=== PATIENT | male | born 1950 | race Two or more races ===

== ENCOUNTER 2022-06-19 10:01 | Inpatient (IN) | payer OTHER ==
[~2022-06-19] VITALS: Ht 162.6 cm; Wt 60.8 kg
--- NOTE | 2022-06-19 10:24 | NUR ---
SE RECIBE PTE ALERTA Y ORIENTADO PTE REFIERE QUE TIENE LOAN MASA DE CANCER EN EL COLON Y TIENE REFERIDO DE DR. JEWEL MCNEIL (COLORECTAL). SE TOAMN VITALES Y SE BIJU EN OBSERVACION.
--- NOTE | 2022-06-19 11:23 | NUR ---
PTE ALERTA X3 ORIENTADO, SE LE REALIZAN MUESTRAS DE LABORATORIO, SE CANALIZA EN MANO IZQUIERDA CON UN ANGIO #[id number], SE LE ORIENTA SOBRE LA MUESTRA DE ORINA A REALIZARSE. EN ESPERA DE LOS RESULTADOS DE LABORATORIO. REFERIDO POR DR. JEWEL JOAQUIN PARA CIRUJIA.
--- NOTE | 2022-06-19 15:26 | NUR ---
SE RECIBE PTE ALERTA Y ORIENTADO EN ALVARO BAJA CON BARANDAS ELEBADAS POR SEGURIDAD, SE OBSERVA CON BUEN PATRON RESPIRATORIO, RECIBIENDO IV FLUIDS PATENTES. AREA DE VENOPUNCION LEAH DE EDEMA Y ERITEMA. PEND CONS. DR JEWEL JOAQUIN. PEND CT ABD/PEL CON CONTRASTE PO.
[2022-06-23] MEDS ORDERED: MAXIMUM D3325 MCG (07:57)
[2022-06-23] MEDS ORDERED: ATORVASTATIN CA20 MG (07:57)
[2022-06-23] MEDS ORDERED: TAMSULOSIN HCL0.4 MG (07:57)
[2022-06-23] MEDS ORDERED: AMLODIPINE BESY10 MG (07:57)
[2022-06-26] MEDS ORDERED: NEURONTIN300 MG PO (17:20)
== END 2022-06-26 20:25 | disposition home or self-care (01) | DRG 329 ==
LOC: ER 10:01 → SEC-K 17:09 → SURH 17:09 → SURG 06-20 15:46
PROVIDERS: ADMIT Surgery; ATTEND Surgery
PROC: 0DTP4ZZ Resection of Rectum, Percutaneous Endoscopic Approach (ICD-10-PCS; 2022-06-20)
PROC: 07BB4ZZ Excision of Mesenteric Lymphatic, Percutaneous Endoscopic Approach (ICD-10-PCS; 2022-06-20)
PROC: 0DBN4ZZ Excision of Sigmoid Colon, Percutaneous Endoscopic Approach (ICD-10-PCS; principal; 2022-06-20 10:00)
DX: K56.699 Other intestinal obstruction unspecified as to partial versus complete obstruction (principal); J69.0 Pneumonitis due to inhalation of food and vomit; C19 Malignant neoplasm of rectosigmoid junction; J95.89 Other postprocedural complications and disorders of respiratory system, not elsewhere classified; K91.89 Other postprocedural complications and disorders of digestive system; K57.50 Diverticulosis of both small and large intestine without perforation or abscess without bleeding; I10 Essential (primary) hypertension; R09.02 Hypoxemia; Z20.822 Contact with and (suspected) exposure to COVID-19

== ENCOUNTER 2022-07-25 07:00 | Day surgery (SDC) | payer OTHER ==
[~2022-07-25 07:00] MED LIST: AMLODIPINE BESY10 MG; ATORVASTATIN CA20 MG; MAXIMUM D3325 MCG; NEURONTIN300 MG PO; TAMSULOSIN HCL0.4 MG
[2022-07-25] MEDS ORDERED: TRAM1TAB98 PO (13:43)
== END 2022-07-25 15:30 | disposition home or self-care (01) ==
LOC: CIR.AMB 07:00
PROVIDERS: ATTEND Surgery
DX: C19 Malignant neoplasm of rectosigmoid junction (principal); K62.5 Hemorrhage of anus and rectum; R59.0 Localized enlarged lymph nodes; I10 Essential (primary) hypertension

== ENCOUNTER 2022-10-30 15:12 | Inpatient (IN) | payer OTHER ==
[~2022-10-30] VITALS: Ht 162.6 cm; Wt 58.1 kg
[~2022-10-30 15:12] MED LIST changes: +TRAM1TAB98 PO
[2022-11-04] MEDS ORDERED: XARELTO15 MG PO (18:05)
[2022-11-04] MEDS ORDERED: XARELTO20 MG PO (18:06)
[2022-11-05] MEDS ORDERED: ABANEU-SL TABL1 EACH SL (06:46)
[2022-11-05] MEDS ORDERED: INTEGRA F CAPS1 EACH PO (06:46)
[2022-11-05] MEDS ORDERED: FOLIC ACID0.8 M1 PO (06:46)
== END 2022-11-04 22:44 | disposition home or self-care (01) | DRG 300 ==
LOC: ER 15:12 → SURH 19:09
PROVIDERS: ADMIT Internal Medicine; ATTEND Internal Medicine
PROC: B54NZZZ Ultrasonography of Left Upper Extremity Veins (ICD-10-PCS; principal; 2022-10-31)
DX: I82.A12 Acute embolism and thrombosis of left axillary vein (principal); C19 Malignant neoplasm of rectosigmoid junction; N39.0 Urinary tract infection, site not specified; N40.0 Benign prostatic hyperplasia without lower urinary tract symptoms; I10 Essential (primary) hypertension; Z95.9 Presence of cardiac and vascular implant and graft, unspecified

== ENCOUNTER 2023-01-23 08:10 | Day surgery (SDC) | payer OTHER ==
[~2023-01-23] VITALS: Ht 165.1 cm; Wt 59.9 kg
[~2023-01-23 08:10] MED LIST changes: +ABANEU-SL TABL1 EACH SL; +FOLIC ACID0.8 M1 PO; +INTEGRA F CAPS1 EACH PO; +XARELTO15 MG PO; +XARELTO20 MG PO
[2023-01-23] MEDS ORDERED: TRAM1TAB98 PO (12:44)
== END 2023-01-23 14:40 | disposition home or self-care (01) ==
LOC: CIR.AMB 08:10
PROVIDERS: ATTEND Surgery
DX: C19 Malignant neoplasm of rectosigmoid junction (principal); K62.5 Hemorrhage of anus and rectum; Z20.822 Contact with and (suspected) exposure to COVID-19; I10 Essential (primary) hypertension

== ENCOUNTER 2023-03-20 09:30 | Inpatient (IN) | payer OTHER ==
[~2023-03-20] VITALS: Ht 165.1 cm; Wt 62.6 kg
[2023-03-28 08:27] LABS: ALBUMIN 3.4 gm/dL (3.4-5.0); CALCIUM 8.8 mg/dL (8.5-10.1); CREATININE SERUM 1.38 mg/dL (0.70-1.30); GFR 50.65; PHOSPHOROUS 3.4 mg/dL (2.5-4.9); POTASSIUM 4.4 mEq/L (3.5-5.1)
[2023-03-28 08:28] LABS: HEMATOCRIT 40.7 % (39.0-48.0); HEMOGLOBIN 14.4 g/dL (13-16.00); MEAN CORPUSCULAR HEMOGLOBIN 31.8 pg (27.00-32.0); MEAN CORPUSCULAR HGB CONC 35.3 g/dl (32.0-36.0); PLATELET COUNT 202 K/uL (150-450); RED BLOOD COUNT 4.52 M/uL (4.00-6.00); RED CELL DISTRIBUTION WIDTH 13.8 % (11.5-14.5)
[2023-03-30 06:35] LABS: HEMATOCRIT 42.8 % (39.0-48.0); HEMOGLOBIN 14.8 g/dL (13-16.00); MEAN CELL VOLUME 90.6 fL (80.0-100.00); MEAN CORPUSCULAR HEMOGLOBIN 31.5 pg (27.00-32.0); MEAN CORPUSCULAR HGB CONC 34.7 g/dl (32.0-36.0); PLATELET COUNT 211 K/uL (150-450); RED BLOOD COUNT 4.72 M/uL (4.00-6.00); RED CELL DISTRIBUTION WIDTH 13.5 % (11.5-14.5)
[2023-03-30 07:35] LABS: ALBUMIN 3.4 gm/dL (3.4-5.0); BILIRUBIN TOTAL 0.75 mg/dL (0.3-1.2); CALCIUM 9.1 mg/dL (8.5-10.1); CREATININE SERUM 1.41 mg/dL (0.70-1.30); GFR 49.41; GLOBULINA 3.2 G/DL (2.4-3.5); POTASSIUM 3.95 mEq/L (3.5-5.1); TOTAL PROTEIN 6.6 gm/dL (6.4-8.2)
[2023-04-01 07:05] LABS: HEMATOCRIT 33.6 % (39.0-48.0); HEMOGLOBIN 11.3 g/dL (13-16.00); MEAN CELL VOLUME 91.2 fL (80.0-100.00); MEAN CORPUSCULAR HEMOGLOBIN 30.8 pg (27.00-32.0); MEAN CORPUSCULAR HGB CONC 33.8 g/dl (32.0-36.0); PLATELET COUNT 176 K/uL (150-450); RED BLOOD COUNT 3.68 M/uL (4.00-6.00); RED CELL DISTRIBUTION WIDTH 13.4 % (11.5-14.5)
[2023-04-01 07:59] LABS: ALBUMIN 2.7 gm/dL (3.4-5.0); BILIRUBIN TOTAL 0.62 mg/dL (0.3-1.2); CALCIUM 8.2 mg/dL (8.5-10.1); CREATININE SERUM 1.27 mg/dL (0.70-1.30); GFR 55.74; GLOBULINA 2.6 G/DL (2.4-3.5); MAGNESIUM 2.1 mg/dL (1.8-2.4); PHOSPHOROUS 2.8 mg/dL (2.5-4.9); POTASSIUM 3.65 mEq/L (3.5-5.1); TOTAL PROTEIN 5.3 gm/dL (6.4-8.2)
[2023-04-01] MEDS ORDERED: ACETAMINOPHEN500 M2 PO (08:05)
[2023-04-01] MEDS ORDERED: INTESTINEX680 M1 PO (08:05)
[2023-04-01] MEDS ORDERED: NEURONTIN300 MG PO (08:05)
== END 2023-04-01 10:28 | disposition home or self-care (01) | DRG 348 ==
LOC: O/R 03-27 07:16 → SURH 03-27 07:16 → SURG 03-27 09:30 → SURH 03-27 13:10 → SURG 03-27 16:45 → SURH 03-27 21:08
PROVIDERS: Internal Medicine; ADMIT Surgery; ATTEND Surgery
PROC: 0DBB4ZZ Excision of Ileum, Percutaneous Endoscopic Approach (ICD-10-PCS; principal; 2023-03-27 16:45)
DX: Z43.2 Encounter for attention to ileostomy (principal); C19 Malignant neoplasm of rectosigmoid junction; K62.5 Hemorrhage of anus and rectum; R59.0 Localized enlarged lymph nodes; K66.0 Peritoneal adhesions (postprocedural) (postinfection)

== ENCOUNTER 2024-04-29 07:05 | Day surgery (SDC) | payer OTHER ==
[~2024-04-29 07:05] MED LIST changes: +ACETAMINOPHEN500 M2 PO; +COZAAR50 MG PO; +INTESTINEX680 M1 PO; +TAMS0.4C PO
[2024-04-29] MEDS ORDERED: TRAM1TAB98 PO (13:10)
[2024-04-29] MEDS ORDERED: BUPIVACAINE HCL 30 ML VIAL IJ ONE (14:30)
[2024-04-29] MEDS ORDERED: HEPARIN SODIUM,PORCINE 500 UNITS/5 ML VIAL IV ONE (14:30)
[2024-04-29] MEDS ORDERED: CEFAZOLIN SODIUM 1,000 MG VIAL IV ONE (14:30)
== END 2024-04-29 17:35 | disposition home or self-care (01) ==
LOC: CIR.AMB 07:05
PROVIDERS: ATTEND Surgery
DX: C19 Malignant neoplasm of rectosigmoid junction (principal)
CPT/HCPCS: 36561; C1751

== ENCOUNTER 2024-09-21 13:32 | Inpatient (IN) | payer OTHER ==
[~2024-09-21] VITALS: Ht 165.1 cm; Wt 51.7 kg
[2024-09-21] MEDS ORDERED: ABATINEX680 MG PO (14:01)
[2024-09-21] MEDS ORDERED: IRON18 M1 PO (14:01)
[2024-09-21] MEDS ORDERED: HORIZANT300 MG PO (14:02)
--- NOTE | 2024-09-21 14:02 | NUR ---
SE RECIBE PACIENTE ALERTA X3. ACOMPANADO DE DELGADO HIJA. LA MISMA REFIERE QUE EL PACIENTE PRESENTA DIARREAS HACE LOAN SEMANA ATRAS Y ES OACIENTE DE CANCER, LAURA TAMBIEN; PADECE DE LOS RINONES. SE PROCEDE A MARCELINO LOS S/V AL PACIENTE Y SE UBICA EN PASILLO.
[2024-09-21] MEDS ORDERED: PANTOPRAZOLE SODIUM 40 MG in 0.9 % SODIUM CHLORIDE 8 ML IV PUSH STA (14:26)
[2024-09-21] MEDS ORDERED: ONDANSETRON HCL 2 MG/ML VIAL IV ONE (14:30)
[2024-09-21] MEDS ORDERED: 0.9 % SODIUM CHLORIDE 1,000 ML IV SCH ×4 (14:30→19:45)
[2024-09-21] MEDS ORDERED: ONDANSETRON HCL 2 MG/ML VIAL ONE (14:33)
--- NOTE | 2024-09-21 14:51 | NUR ---
RN GOFF EJECUTA ORDENES MEDICAS EN DELGADO TOTALIDAD Y BAJO MEDIDAS ASEPTICAS. PTE REFIERE ENTENDER Y ACEPTAR.
[2024-09-21 15:30] LABS: ALBUMIN 3.5 gm/dL (3.4-5.0); BILIRUBIN TOTAL 0.58 mg/dL (0.3-1.2); BILIRUBIN,CONJUGATED 0.2 mg/dL (0.0-0.2); BILIRUBIN,UNCONJUGATED 0.38 mg/dL (0.0-0.6); CALCIUM 9.4 mg/dL (8.5-10.1); GLOBULINA 3.6 G/DL (2.4-3.5); TOTAL PROTEIN 7.1 gm/dL (6.4-8.2)
[2024-09-21 15:33] LABS: GFR 6.74
[2024-09-21 15:34] LABS: CREATININE SERUM 7.9 mg/dL (0.70-1.30); POTASSIUM 6.72 mEq/L (3.5-5.1)
[2024-09-21 15:40] LABS: HEMATOCRIT 31.9 % (39.0-48.0); HEMOGLOBIN 10.7 g/dL (13-16.00); MEAN CELL VOLUME 91.6 fL (80.0-100.00); MEAN CORPUSCULAR HEMOGLOBIN 30.8 pg (27.00-32.0); MEAN CORPUSCULAR HGB CONC 33.6 g/dl (32.0-36.0); PLATELET COUNT 237 K/uL (150-450); RED BLOOD COUNT 3.48 M/uL (4.00-6.00)
[2024-09-21 15:56] LABS: RED CELL DISTRIBUTION WIDTH 16.7 % (11.5-14.5)
[2024-09-21] MEDS ORDERED: DEXTROSE 50 % IN WATER 0.5 G/ML VIAL IV ONE ×2 (17:15→18:05)
[2024-09-21] MEDS ORDERED: SODIUM BICARBONATE 150 MEQ in DEXTROSE 5 % IN WATER 1,000 ML IV SCH (17:15)
[2024-09-21] MEDS ORDERED: INSULIN REGULAR, HUMAN 1,000 UNIT/10 ML UNITS IV ONE (17:15)
[2024-09-21] MEDS ORDERED: CITRIC ACID/SODIUM CITRATE 30 ML BLIST.PACK PO ONE ×2 (17:15→18:06)
[2024-09-21] MEDS ORDERED: SODIUM POLYSTYRENE SULFONATE 15 G/4 TSP TSP PO ONE (17:15)
[2024-09-21 17:44] LABS: PH,URINE 5.5 (5.0-8.0); URINE APPEARANCE Clear; URINE BILIRRUBIN Negative (NEGATIVE); URINE BLOOD Large; URINE COLOR Yellow; URINE GLUCOSE Negative (NEGATIVE); URINE KETONE Negative (NEGATIVE); URINE LEUKOCYTE Moderate; URINE NITRATE Negative; URINE UROBILINOGEN 0.2 E.U./dl
[2024-09-21 17:48] LABS: URINE CAST 2.06 uL (0.0-1.40); URINE EPITHELIAL CELLS 7.9 uL (0.0-38.8); URINE RBC 65.5 uL (0.0-20.8); URINE WBC 21.5 uL (0.0-23.2)
[2024-09-21 18:01] LABS: URINE PROTEIN 100 (NEGATIVE)
[2024-09-21 18:02] LABS: URINE CRYSTALS MODERATE /HPF
[2024-09-21 18:49] LABS: ABG PH 7.281 (7.35-7.45)
[2024-09-21 18:50] LABS: ABG PO2 135.3 mmHg (80-100); BASE EXCESS -16.2 mmol/l; BICARBONATE 7.8 mmol/l (23-25); SaO2 98.4 %; Tco2 8.4 mmol/l; allen test SATISFACTORY; mode ROOM AIR; o2 21 %; puncture site RADIAL LEFT
[2024-09-21 19:07] LABS: COVID-19 AG NEGATIVE (NEGATIVE)
[2024-09-21 19:13] LABS: INR 1.2; PARTIAL THROMBOPLASTIN TIME 23.7 SECONDS (22.0-34.0); PROTHROMBIN TIME 12.9 SECONDS (9.0-11.5)
[2024-09-21 19:20] LABS: MAGNESIUM 1.8 mg/dL (1.8-2.4); PHOSPHOROUS 5.6 mg/dL (2.5-4.9); URIC ACID 7.1 mg/dL (3.5-8.5)
[2024-09-21] MEDS ORDERED: SODIUM BICARBONATE 50MEQ/50ML VIAL IV ONE (19:31)
[2024-09-21] MEDS ORDERED: CEFTRIAXONE SODIUM 2,000 MG in 0.9 % SODIUM CHLORIDE 100 ML IV SCH (19:37)
[2024-09-21] MEDS ORDERED: SODIUM POLYSTYRENE SULFONATE 15 G/4 TSP TSP PO SCH (19:39)
[2024-09-21] MEDS ORDERED: SODIUM BICARBONATE 1 MEQ/ML DISP.SYRIN 50ML IV ONE (19:45)
[2024-09-21] MEDS ORDERED: ACETAMINOPHEN 500 MG GEL..CAP PO PRN (19:45)
[2024-09-21] MEDS ORDERED: ONDANSETRON HCL 4 MG in 0.9 % SODIUM CHLORIDE 50 ML IV PRN (19:45)
[2024-09-21 23:30] VITALS: BP 131/95; O2SAT 98
[2024-09-22 05:26] LABS: ALBUMIN 2.6 gm/dL (3.4-5.0); BILIRUBIN TOTAL 0.47 mg/dL (0.3-1.2); CALCIUM 7.7 mg/dL (8.5-10.1); GFR 7.69; GLOBULINA 2.5 G/DL (2.4-3.5); POTASSIUM 4.7 mEq/L (3.5-5.1); TOTAL PROTEIN 5.1 gm/dL (6.4-8.2)
[2024-09-22 05:39] LABS: CREATININE SERUM 7.05 mg/dL (0.70-1.30)
[2024-09-22 07:04] VITALS: BP 194/77; O2SAT 100
[2024-09-22] MEDS ORDERED: SODIUM BICARBONATE 150 MEQ in DEXTROSE 5 % IN WATER 1,000 ML IV SCH (08:30)
[2024-09-22] MEDS ORDERED: AMLODIPINE BESYLATE 2.5 MG TABLET PO SCH (09:00)
[2024-09-22] MEDS ORDERED: PANTOPRAZOLE SODIUM 40 MG/VIAL VIAL IV SCH (09:00)
[2024-09-22] MEDS ORDERED: IRON FUM,PS/FOLIC/BCOMP,C NO.9 1 CAP CAPSULE PO SCH (09:00)
[2024-09-22 10:45] LABS: ABG PH 7.548 (7.35-7.45); ABG PO2 166.4 mmHg (80-100); ABG pCO2 24.5 mmHg (35-45); BASE EXCESS 0.3 mmol/l; BICARBONATE 20.9 mmol/l (23-25); SaO2 99.7 %; Tco2 21.6 mmol/l
[2024-09-22] MEDS ORDERED: hydrALAZINE HCL 20 MG VIAL IV PRN (10:45)
[2024-09-22 11:50] LABS: allen test SATISFACTORY; mode NASAL CANNULA; o2 32 %; puncture site RADIAL LEFT
[2024-09-22 13:22] VITALS: BP 186/80; O2SAT 100
[2024-09-22] MEDS ORDERED: SODIUM CHLORIDE 0.45 % 1,000 ML IV SCH (13:45)
[2024-09-22 13:52] VITALS: BP 109/69; O2SAT 100
[2024-09-22 14:55] LABS: HEMATOCRIT 28.6 % (39.0-48.0); HEMOGLOBIN 9.9 g/dL (13-16.00); MEAN CELL VOLUME 89.2 fL (80.0-100.00); MEAN CORPUSCULAR HEMOGLOBIN 30.9 pg (27.00-32.0); MEAN CORPUSCULAR HGB CONC 34.7 g/dl (32.0-36.0); PLATELET COUNT 183 K/uL (150-450); RED BLOOD COUNT 3.21 M/uL (4.00-6.00)
[2024-09-22 15:59] VITALS: BP 132/77; O2SAT 100
[2024-09-22] MEDS ORDERED: hydrALAZINE HCL 25 MG TABLET PO SCH (17:00)
[2024-09-22] MEDS ORDERED: MEROPENEM 500 MG/VIAL VIAL IV SCH (18:16)
[2024-09-22 20:00] VITALS: BP 131/68; O2SAT 100
[2024-09-22] MEDS ORDERED: LINEZOLID IN DEXTROSE 5% 300 ML IV SCH (21:00)
[2024-09-22 23:39] VITALS: BP 131/70; O2SAT 100
[2024-09-23 04:00] VITALS: BP 121/70; O2SAT 100
[2024-09-23 07:17] LABS: MEAN CELL VOLUME 88.1 fL (80.0-100.00); MEAN CORPUSCULAR HGB CONC 34.8 g/dl (32.0-36.0); RED BLOOD COUNT 2.31 M/uL (4.00-6.00); RED CELL DISTRIBUTION WIDTH 16.3 % (11.5-14.5)
[2024-09-23 07:22] LABS: MEAN CORPUSCULAR HEMOGLOBIN 30.7 pg (27.00-32.0)
[2024-09-23 07:29] LABS: HEMOGLOBIN 7.1 g/dL (13-16.00)
[2024-09-23 07:30] LABS: HEMATOCRIT 20.4 % (39.0-48.0); PLATELET COUNT 118 K/uL (150-450)
[2024-09-23 07:37] VITALS: BP 153/76; O2SAT 100
[2024-09-23 07:59] LABS: ALBUMIN 2.2 gm/dL (3.4-5.0); BILIRUBIN TOTAL 0.43 mg/dL (0.3-1.2); CALCIUM 7.1 mg/dL (8.5-10.1); GFR 7.65; POTASSIUM 4.42 mEq/L (3.5-5.1); TOTAL PROTEIN 4.2 gm/dL (6.4-8.2)
[2024-09-23 08:19] LABS: CREATININE SERUM 7.08 mg/dL (0.70-1.30)
[2024-09-23 08:54] LABS: MEAN CELL VOLUME 89.2 fL (80.0-100.00); MEAN CORPUSCULAR HGB CONC 34.6 g/dl (32.0-36.0); RED BLOOD COUNT 2.39 M/uL (4.00-6.00); RED CELL DISTRIBUTION WIDTH 16.2 % (11.5-14.5)
[2024-09-23 08:55] LABS: MEAN CORPUSCULAR HEMOGLOBIN 30.9 pg (27.00-32.0)
[2024-09-23 08:58] LABS: HEMATOCRIT 21.3 % (39.0-48.0); HEMOGLOBIN 7.4 g/dL (13-16.00); PLATELET COUNT 117 K/uL (150-450)
[2024-09-23] MEDS ORDERED: AMLODIPINE BESYLATE 5 MG TABLET PO SCH (09:00)
[2024-09-23] MEDS ORDERED: AMLODIPINE BESYLATE 2.5 MG TABLET PO SCH (09:00)
[2024-09-23 09:59] LABS: ob POSITIVE (NEGATIVE)
[2024-09-23] MEDS ORDERED: CHLORHEXIDINE GLUCONATE 120 ML BOTTLE TOP ONE (10:05)
[2024-09-23 12:08] VITALS: BP 116/71; O2SAT 100
[2024-09-23 15:10] VITALS: BP 149/82; O2SAT 100
[2024-09-23 20:00] VITALS: BP 128/78; O2SAT 100
[2024-09-23] MEDS ORDERED: METRONIDAZOLE/SODIUM CHLORIDE 100 ML IV SCH (21:00)
[2024-09-23] MEDS ORDERED: PANTOPRAZOLE SODIUM 40 MG/VIAL VIAL IV SCH (21:00)
[2024-09-23 23:13] VITALS: BP 147/87; O2SAT 100
[2024-09-24 01:27] LABS: MEAN CELL VOLUME 88.8 fL (80.0-100.00); MEAN CORPUSCULAR HGB CONC 34.6 g/dl (32.0-36.0); RED BLOOD COUNT 3.15 M/uL (4.00-6.00)
[2024-09-24 01:29] LABS: HEMOGLOBIN 9.7 g/dL (13-16.00); MEAN CORPUSCULAR HEMOGLOBIN 30.7 pg (27.00-32.0); PLATELET COUNT 111 K/uL (150-450)
[2024-09-24 04:00] VITALS: BP 165/83; O2SAT 100
[2024-09-24 07:28] VITALS: BP 169/86; O2SAT 100
[2024-09-24 07:55] LABS: ALBUMIN 2.1 gm/dL (3.4-5.0); BILIRUBIN TOTAL 0.88 mg/dL (0.3-1.2); GLOBULINA 2.1 G/DL (2.4-3.5); PHOSPHOROUS 5.6 mg/dL (2.5-4.9); POTASSIUM 4.24 mEq/L (3.5-5.1); TOTAL PROTEIN 4.2 gm/dL (6.4-8.2)
[2024-09-24 08:13] LABS: HEMATOCRIT 25.9 % (39.0-48.0); MEAN CELL VOLUME 89.1 fL (80.0-100.00); MEAN CORPUSCULAR HGB CONC 34.4 g/dl (32.0-36.0); RED BLOOD COUNT 2.91 M/uL (4.00-6.00); RED CELL DISTRIBUTION WIDTH 15.5 % (11.5-14.5)
[2024-09-24 08:33] LABS: C-REACTIVE PROTEIN 8.36 MG/DL (0.00-0.29); GFR 8.39
[2024-09-24 08:34] LABS: CALCIUM 7.1 mg/dL (8.5-10.1)
[2024-09-24 08:38] LABS: CREATININE SERUM 6.54 mg/dL (0.70-1.30)
[2024-09-24 08:39] LABS: MAGNESIUM 1.4 mg/dL (1.8-2.4)
[2024-09-24 08:51] LABS: HEMOGLOBIN 8.9 g/dL (13-16.00); MEAN CORPUSCULAR HEMOGLOBIN 30.5 pg (27.00-32.0); PLATELET COUNT 103 K/uL (150-450)
[2024-09-24] MEDS ORDERED: MAGNESIUM SULFATE IN WATER 2 GM/50 ML PIGGYBAG IV NR (09:00)
[2024-09-24] MEDS ORDERED: FILGRASTIM-AAFI 480 MCG/0.8 ML SYRINGE SUBCUTANEO SCH (09:55)
[2024-09-24] MEDS ORDERED: RINGERS SOLUTION,LACTATED 1,000 ML IV SCH (10:00)
[2024-09-24] MEDS ORDERED: Calcium Acetate 667 MG CAP PO SCH (11:00)
[2024-09-24 12:00] VITALS: BP 153/74; O2SAT 100
[2024-09-24 15:24] VITALS: BP 153/74; BP 163/81; O2SAT 100
[2024-09-24] MEDS ORDERED: Calcium Carbonate 1250 MG/5 ML PO SCH (16:00)
[2024-09-24] MEDS ORDERED: AMLODIPINE BESYLATE 2.5 MG TABLET PO SCH (17:00)
[2024-09-24] MEDS ORDERED: CLOTRIMAZOLE 10 MG TROCHE MM SCH (17:46)
[2024-09-24 20:00] VITALS: BP 149/83; O2SAT 100
[2024-09-24 23:19] VITALS: BP 155/82; O2SAT 100
[2024-09-25] VITALS (7 sets, daily range): BP systolic 126–164; BP diastolic 81–89; O2SAT 98–100
[2024-09-25 06:12] LABS: CALCIUM 8.2 mg/dL (8.5-10.1); POTASSIUM 4.59 mEq/L (3.5-5.1)
[2024-09-25 06:23] LABS: CREATININE SERUM 6.4 mg/dL (0.70-1.30); GFR 8.6
[2024-09-25] MEDS ORDERED: DEXTROSE 5 % AND 0.9 % NACL 1,000 ML IV SCH (10:00)
[2024-09-25] MEDS ORDERED: SODIUM BICARBONATE IV SCH ×2 (10:30→17:45)
[2024-09-25] MEDS ORDERED: SODIUM CHLORIDE 0.9% IV SCH (10:30)
[2024-09-25] MEDS ORDERED: SODIUM BICARBONATE 50MEQ/50ML VIAL IV ONE ×2 (11:11→17:24)
[2024-09-25] MEDS ORDERED: FOLIC ACID 1 MG TABLET PO SCH (12:00)
[2024-09-25] MEDS ORDERED: CYANOCOBALAMIN (VITAMIN B-12) 1,000 MCG/ML VIAL SUBCUTANEO SCH (12:00)
[2024-09-25] MEDS ORDERED: SOD FERRIC GLUC COMPLX/SUCROSE 62.5 MG in 0.9 % SODIUM CHLORIDE 50 ML IV SCH (12:00)
[2024-09-25] MEDS ORDERED: SODIUM BICARBONATE 100 MEQ in DEXTROSE 5 % IN WATER 1,000 ML IV SCH (17:45)
[2024-09-26 04:00] VITALS: BP 159/90; O2SAT 100
[2024-09-26 07:36] VITALS: BP 159/94; O2SAT 100
[2024-09-26] MEDS ORDERED: EPOETIN ALFA-EPBX 10,000 UNIT/ML VIAL (Retacrit) SUBCUTANEO SCH (09:00)
[2024-09-26] MEDS ORDERED: METOPROLOL SUCCINATE 25 MG TAB.SR.24H PO NR (11:30)
[2024-09-26 12:00] VITALS: BP 143/96; O2SAT 100
[2024-09-26] MEDS ORDERED: hydrALAZINE HCL 50 MG TABLET PO SCH (13:00)
[2024-09-26 15:07] VITALS: BP 156/87; O2SAT 98
[2024-09-26 18:55] LABS: HEMATOCRIT 39.1 % (39.0-48.0); HEMOGLOBIN 13.4 g/dL (13-16.00); MEAN CELL VOLUME 86.8 fL (80.0-100.00); MEAN CORPUSCULAR HEMOGLOBIN 29.8 pg (27.00-32.0); MEAN CORPUSCULAR HGB CONC 34.4 g/dl (32.0-36.0); RED CELL DISTRIBUTION WIDTH 15.3 % (11.5-14.5)
[2024-09-26 18:57] LABS: PLATELET COUNT 109 K/uL (150-450)
[2024-09-26 19:08] LABS: INR 1.45; PARTIAL THROMBOPLASTIN TIME 36.7 SECONDS (22.0-34.0)
[2024-09-26 19:14] LABS: PROTHROMBIN TIME 15.4 SECONDS (9.0-11.5)
[2024-09-26 19:15] LABS: ALBUMIN 2.2 gm/dL (3.4-5.0); BILIRUBIN TOTAL 0.92 mg/dL (0.3-1.2); GLOBULINA 2.3 G/DL (2.4-3.5); POTASSIUM 3.55 mEq/L (3.5-5.1); TOTAL PROTEIN 4.5 gm/dL (6.4-8.2)
[2024-09-26 19:47] LABS: GFR 9.32
[2024-09-26 19:48] LABS: CREATININE SERUM 5.97 mg/dL (0.70-1.30)
[2024-09-26 20:00] VITALS: BP 140/86; O2SAT 100
[2024-09-26] MEDS ORDERED: SODIUM CHLORIDE 0.45 % 1,000 ML IV SCH (20:15)
[2024-09-26] MEDS ORDERED: SODIUM BICARBONATE 1 MEQ/ML DISP.SYRIN 50ML IV SCH (21:00)
[2024-09-26] MEDS ORDERED: SODIUM BICARBONATE 50MEQ/50ML VIAL IV ONE (21:08)
[2024-09-26 22:57] VITALS: BP 120/73; O2SAT 100
[2024-09-27] MEDS ORDERED: METOPROLOL SUCCINATE 25 MG TAB.SR.24H PO SCH (09:00)
[2024-09-27 23:58] VITALS: BP 136/87; O2SAT 100
[2024-09-28 04:03] VITALS: BP 146/78; O2SAT 100
[2024-09-28 07:03] VITALS: BP 134/75; O2SAT 100
[2024-09-28 07:09] LABS: HEMATOCRIT 37.5 % (39.0-48.0); HEMOGLOBIN 12.8 g/dL (13-16.00); MEAN CELL VOLUME 87.6 fL (80.0-100.00); MEAN CORPUSCULAR HEMOGLOBIN 29.9 pg (27.00-32.0); MEAN CORPUSCULAR HGB CONC 34.2 g/dl (32.0-36.0); RED BLOOD COUNT 4.29 M/uL (4.00-6.00); RED CELL DISTRIBUTION WIDTH 15.5 % (11.5-14.5)
[2024-09-28 07:26] LABS: PLATELET COUNT 118 K/uL (150-450)
[2024-09-28 07:54] LABS: ALBUMIN 1.8 gm/dL (3.4-5.0); BILIRUBIN TOTAL 0.63 mg/dL (0.3-1.2); CALCIUM 7.4 mg/dL (8.5-10.1); GLOBULINA 1.9 G/DL (2.4-3.5); PHOSPHOROUS 4.8 mg/dL (2.5-4.9); POTASSIUM 3.05 mEq/L (3.5-5.1); TOTAL PROTEIN 3.7 gm/dL (6.4-8.2)
[2024-09-28 08:12] LABS: GFR 10.31
[2024-09-28 08:13] LABS: CREATININE SERUM 5.47 mg/dL (0.70-1.30)
[2024-09-28 08:50] LABS: PLATELET ESTIMATE DECREASED (NORMAL)
[2024-09-28] MEDS ORDERED: SUCRALFATE 1 G TABLET PO SCH (09:00)
[2024-09-28] MEDS ORDERED: SODIUM BICARBONATE 50MEQ/50ML VIAL IV SCH (09:00)
[2024-09-28] MEDS ORDERED: DEXTROSE 5 %-0.45 % SOD CHLORD 1,000 ML IV SCH (09:15)
[2024-09-28 10:28] LABS: URINE APPEARANCE Clear; URINE BILIRRUBIN Negative (NEGATIVE); URINE BLOOD Large; URINE COLOR Yellow; URINE GLUCOSE Negative (NEGATIVE); URINE KETONE Trace (NEGATIVE); URINE LEUKOCYTE Trace; URINE NITRATE Negative; URINE PROTEIN 30 (NEGATIVE); URINE UROBILINOGEN 0.2 E.U./dl
[2024-09-28 10:32] LABS: URINE BACTERIA 45.2 uL (0.0-1933); URINE EPITHELIAL CELLS 3.1 uL (0.0-38.8); URINE RBC 50.8 uL (0.0-20.8); URINE WBC 4.1 uL (0.0-23.2)
[2024-09-28 12:00] VITALS: BP 130/74; O2SAT 100
[2024-09-28] MEDS ORDERED: AMINO ACIDS/PROTEIN HYDROLYS 30 ML BLIST.PACK PO SCH (13:00)
[2024-09-28] MEDS ORDERED: POTASSIUM CHLORIDE IN WATER 100 ML IV SCH (13:00)
[2024-09-28 15:52] VITALS: BP 136/76; O2SAT 100
[2024-09-28] MEDS ORDERED: MEGESTROL ACETATE 400 MG/10 ML BLIST PACK PO SCH (17:00)
[2024-09-28 20:07] VITALS: BP 129/82; O2SAT 100
[2024-09-28 23:39] VITALS: BP 144/80; O2SAT 100
[2024-09-29 04:36] VITALS: BP 135/83; O2SAT 100
[2024-09-29 07:17] VITALS: BP 144/79; O2SAT 100
[2024-09-29 07:49] LABS: ALBUMIN 1.9 gm/dL (3.4-5.0); CALCIUM 7.6 mg/dL (8.5-10.1); MAGNESIUM 2.3 mg/dL (1.8-2.4); PHOSPHOROUS 3.6 mg/dL (2.5-4.9); POTASSIUM 3.14 mEq/L (3.5-5.1)
[2024-09-29 08:04] LABS: GFR 10.22
[2024-09-29 08:06] LABS: CREATININE SERUM 5.51 mg/dL (0.70-1.30)
[2024-09-29 12:00] VITALS: BP 134/74; O2SAT 100
[2024-09-29] MEDS ORDERED: POTASSIUM CHLORIDE/D5-0.45NACL 20 MEQ/1,000 ML PIGGYBAG IV SCH (14:30)
[2024-09-29 15:26] VITALS: BP 135/80; O2SAT 100
[2024-09-29 20:00] VITALS: BP 138/81; O2SAT 100
[2024-09-29 22:31] VITALS: BP 134/77
[2024-09-30 00:37] VITALS: BP 123/77; O2SAT 97
[2024-09-30 06:50] LABS: CALCIUM 7.6 mg/dL (8.5-10.1); PHOSPHOROUS 3.6 mg/dL (2.5-4.9); POTASSIUM 3.5 mEq/L (3.5-5.1)
[2024-09-30 07:01] LABS: CREATININE SERUM 5.37 mg/dL (0.70-1.30); GFR 10.53
[2024-09-30 10:03] VITALS: BP 151/90; O2SAT 97
[2024-09-30 15:10] LABS: campy Final report (.)
[2024-09-30 18:35] VITALS: BP 130/84
[2024-10-01 01:06] VITALS: BP 121/78
[2024-10-01] MEDS ORDERED: LACTOBACILLUS ACIDOPHILUS 1 CAP CAP PO SCH (09:00)
[2024-10-01 09:52] VITALS: BP 134/81; O2SAT 98
[2024-10-01 17:58] VITALS: BP 130/80; O2SAT 98
[2024-10-02 01:34] VITALS: BP 122/70
[2024-10-02 09:24] VITALS: BP 142/90; O2SAT 98
[2024-10-02 17:09] VITALS: BP 155/82; O2SAT 97
[2024-10-03 01:39] VITALS: BP 128/77
[2024-10-03 07:16] LABS: BILIRUBIN TOTAL 0.48 mg/dL (0.3-1.2); CALCIUM 8.2 mg/dL (8.5-10.1); GLOBULINA 2.1 G/DL (2.4-3.5); PHOSPHOROUS 4.2 mg/dL (2.5-4.9); POTASSIUM 3.92 mEq/L (3.5-5.1); TOTAL PROTEIN 4.1 gm/dL (6.4-8.2)
[2024-10-03 07:30] LABS: GFR 10.14
[2024-10-03 07:31] LABS: CREATININE SERUM 5.55 mg/dL (0.70-1.30)
[2024-10-03] MEDS ORDERED: DEXTROSE 5 %-0.45 % SOD CHLORD 1,000 ML IV SCH (08:15)
[2024-10-03 08:30] VITALS: BP 148/82
[2024-10-03 13:07] LABS: HEMATOCRIT 34.9 % (39.0-48.0); HEMOGLOBIN 11.9 g/dL (13-16.00); MEAN CELL VOLUME 87.6 fL (80.0-100.00); MEAN CORPUSCULAR HEMOGLOBIN 29.8 pg (27.00-32.0); MEAN CORPUSCULAR HGB CONC 34.1 g/dl (32.0-36.0); PLATELET COUNT 211 K/uL (150-450); RED BLOOD COUNT 3.98 M/uL (4.00-6.00)
[2024-10-03] MEDS ORDERED: MEROPENEM 500 MG/VIAL VIAL IV SCH (17:00)
[2024-10-03 18:40] VITALS: BP 151/84
[2024-10-03 20:33] LABS: URINE APPEARANCE Clear; URINE BILIRRUBIN Negative (NEGATIVE); URINE BLOOD Moderate; URINE COLOR Yellow; URINE KETONE Negative (NEGATIVE); URINE LEUKOCYTE Small; URINE NITRATE Negative; URINE PROTEIN 30 (NEGATIVE); URINE UROBILINOGEN 0.2 E.U./dl
[2024-10-03 20:36] LABS: URINE BACTERIA 103.9 uL (0.0-1933); URINE EPITHELIAL CELLS 11.3 uL (0.0-38.8); URINE RBC 29.6 uL (0.0-20.8); URINE WBC 62.9 uL (0.0-23.2)
[2024-10-03 21:11] LABS: URINE CAST 0.29 uL (0.0-1.40); URINE GLUCOSE 100 MG/DL (NEGATIVE)
[2024-10-04 02:03] VITALS: BP 134/80; O2SAT 97
[2024-10-04 06:29] LABS: HEMATOCRIT 32.5 % (39.0-48.0); HEMOGLOBIN 11.4 g/dL (13-16.00); MEAN CELL VOLUME 87.2 fL (80.0-100.00); MEAN CORPUSCULAR HEMOGLOBIN 30.6 pg (27.00-32.0); PLATELET COUNT 230 K/uL (150-450); RED BLOOD COUNT 3.73 M/uL (4.00-6.00); RED CELL DISTRIBUTION WIDTH 16.2 % (11.5-14.5)
[2024-10-04 07:01] LABS: ALBUMIN 1.8 gm/dL (3.4-5.0); BILIRUBIN TOTAL 0.37 mg/dL (0.3-1.2); CALCIUM 7.6 mg/dL (8.5-10.1); GLOBULINA 2.1 G/DL (2.4-3.5); MAGNESIUM 1.9 mg/dL (1.8-2.4); PHOSPHOROUS 3.9 mg/dL (2.5-4.9); POTASSIUM 3.65 mEq/L (3.5-5.1); TOTAL PROTEIN 3.9 gm/dL (6.4-8.2)
[2024-10-04 07:38] LABS: CREATININE SERUM 5.21 mg/dL (0.70-1.30); GFR 10.9
[2024-10-04 08:58] VITALS: BP 135/81
[2024-10-04] MEDS ORDERED: CITRIC ACID/SODIUM CITRATE 30 ML BLIST.PACK PO SCH (09:00)
[2024-10-04 11:10] LABS: ABG PH 7.346 (7.35-7.45); ABG PO2 117.1 mmHg (80-100); BICARBONATE 11.2 mmol/l (23-25); SaO2 98.1 %; Tco2 11.8 mmol/l
[2024-10-04 11:15] LABS: allen test SATISFACTORY; mode ROOM AIR; o2 21 %; puncture site RADIAL RIGHT
[2024-10-04 16:35] VITALS: BP 151/78; O2SAT 98
[2024-10-04] MEDS ORDERED: VANCOMYCIN HCL 1,000 MG VIAL IV NR (17:00)
[2024-10-04] MEDS ORDERED: SODIUM BICARBONATE 50MEQ/50ML VIAL IV SCH (18:00)
[2024-10-04] MEDS ORDERED: MIDAZOLAM HCL 2 MG/2 ML VIAL IV PUSH ONE (19:00)
[2024-10-04] MEDS ORDERED: fentaNYL CITRATE 50 MCG/ML AMPUL IV PUSH ONE (19:00)
[2024-10-05 03:02] VITALS: BP 147/87; O2SAT 95
[2024-10-05 09:14] VITALS: BP 145/86; O2SAT 99
[2024-10-05 09:41] LABS: INR 1.4; PARTIAL THROMBOPLASTIN TIME 30.1 SECONDS (22.0-34.0); PROTHROMBIN TIME 14.9 SECONDS (9.0-11.5)
[2024-10-05] MEDS ORDERED: SODIUM CHLORIDE 0.45 % 1,000 ML IV SCH (17:00)
[2024-10-05 19:11] VITALS: BP 123/78
[2024-10-06 02:42] VITALS: BP 147/84; O2SAT 95
[2024-10-06 06:47] LABS: HEMATOCRIT 30.9 % (39.0-48.0); HEMOGLOBIN 10.6 g/dL (13-16.00); MEAN CELL VOLUME 88.5 fL (80.0-100.00); MEAN CORPUSCULAR HEMOGLOBIN 30.5 pg (27.00-32.0); MEAN CORPUSCULAR HGB CONC 34.4 g/dl (32.0-36.0); PLATELET COUNT 264 K/uL (150-450); RED BLOOD COUNT 3.49 M/uL (4.00-6.00); RED CELL DISTRIBUTION WIDTH 15.8 % (11.5-14.5)
[2024-10-06 07:31] LABS: ALBUMIN 1.8 gm/dL (3.4-5.0); BILIRUBIN TOTAL 0.41 mg/dL (0.3-1.2); CALCIUM 7.2 mg/dL (8.5-10.1); GLOBULINA 2.2 G/DL (2.4-3.5); MAGNESIUM 1.5 mg/dL (1.8-2.4); PHOSPHOROUS 3.9 mg/dL (2.5-4.9)
[2024-10-06 07:44] VITALS: BP 130/74; O2SAT 96
[2024-10-06 08:01] LABS: C-REACTIVE PROTEIN 2.05 MG/DL (0.00-0.29); GFR 15.01
[2024-10-06 08:02] LABS: CREATININE SERUM 3.94 mg/dL (0.70-1.30); POTASSIUM 2.89 mEq/L (3.5-5.1)
[2024-10-06] MEDS ORDERED: POTASSIUM BICARBONATE/CIT AC 25 MEQ TABLET.EFF PO SCH (08:07)
[2024-10-06] MEDS ORDERED: MAGNESIUM SULFATE IN WATER 4 GM/100 ML PIGGYBACK IV NR (08:40)
[2024-10-06 16:57] VITALS: BP 120/71; O2SAT 96
[2024-10-06] MEDS ORDERED: POTASSIUM BICARBONATE/CIT AC 25 MEQ TABLET.EFF PO ONE (20:24)
[2024-10-07 02:12] VITALS: BP 135/76; O2SAT 97
[2024-10-07 08:15] VITALS: BP 121/71; O2SAT 96
[2024-10-07 17:50] LABS: HEMATOCRIT 34.2 % (39.0-48.0); HEMOGLOBIN 11.5 g/dL (13-16.00); MEAN CELL VOLUME 88.2 fL (80.0-100.00); MEAN CORPUSCULAR HEMOGLOBIN 29.8 pg (27.00-32.0); MEAN CORPUSCULAR HGB CONC 33.8 g/dl (32.0-36.0); PLATELET COUNT 372 K/uL (150-450); RED BLOOD COUNT 3.87 M/uL (4.00-6.00)
[2024-10-07 18:15] LABS: CALCIUM 7.4 mg/dL (8.5-10.1); CREATININE SERUM 2.84 mg/dL (0.70-1.30); GFR 21.9; PHOSPHOROUS 2.7 mg/dL (2.5-4.9)
[2024-10-07 18:30] LABS: POTASSIUM 2.98 mEq/L (3.5-5.1)
[2024-10-07 18:36] VITALS: BP 129/81
[2024-10-07] MEDS ORDERED: POTASSIUM CHLORIDE IN WATER 40 MEQ/100 ML PIGGYBAG IV SCH (21:00)
[2024-10-08 03:08] VITALS: BP 110/72; O2SAT 97
[2024-10-08 09:34] LABS: HEMATOCRIT 31.1 % (39.0-48.0); HEMOGLOBIN 10.7 g/dL (13-16.00); MEAN CELL VOLUME 88.4 fL (80.0-100.00); MEAN CORPUSCULAR HEMOGLOBIN 30.3 pg (27.00-32.0); MEAN CORPUSCULAR HGB CONC 34.3 g/dl (32.0-36.0); PLATELET COUNT 348 K/uL (150-450); RED BLOOD COUNT 3.52 M/uL (4.00-6.00); RED CELL DISTRIBUTION WIDTH 16.5 % (11.5-14.5)
[2024-10-08 10:29] LABS: ALBUMIN 1.9 gm/dL (3.4-5.0); CALCIUM 7.7 mg/dL (8.5-10.1); CREATININE SERUM 2.71 mg/dL (0.70-1.30); GFR 23.12; MAGNESIUM 2.1 mg/dL (1.8-2.4); PHOSPHOROUS 2.7 mg/dL (2.5-4.9); POTASSIUM 4.6 mEq/L (3.5-5.1)
[2024-10-08 19:01] VITALS: BP 116/74
[2024-10-09 02:07] VITALS: BP 106/65; O2SAT 97
[2024-10-09 09:12] VITALS: BP 130/78
[2024-10-09 17:20] VITALS: BP 125/80
[2024-10-10 00:58] VITALS: BP 118/70; O2SAT 97
[2024-10-10 07:26] LABS: ALBUMIN 1.9 gm/dL (3.4-5.0); CALCIUM 7.6 mg/dL (8.5-10.1); CREATININE SERUM 1.94 mg/dL (0.70-1.30); PHOSPHOROUS 2.6 mg/dL (2.5-4.9); POTASSIUM 3.74 mEq/L (3.5-5.1)
[2024-10-10 07:28] LABS: MAGNESIUM 1.4 mg/dL (1.8-2.4)
[2024-10-10 09:15] VITALS: BP 123/77; O2SAT 98
[2024-10-10] MEDS ORDERED: MAGNESIUM SULFATE/D5W 100 ML IV SCH (14:05)
[2024-10-10 18:12] VITALS: BP 128/76
[2024-10-10 23:30] LABS: HEMATOCRIT 30.3 % (39.0-48.0); MEAN CORPUSCULAR HGB CONC 33.7 g/dl (32.0-36.0); PLATELET COUNT 421 K/uL (150-450); RED CELL DISTRIBUTION WIDTH 15.8 % (11.5-14.5)
[2024-10-10 23:41] LABS: HEMOGLOBIN 10.2 g/dL (13-16.00)
[2024-10-11 01:40] VITALS: BP 110/69
[2024-10-11 10:09] VITALS: BP 141/75; O2SAT 100
[2024-10-11 11:24] LABS: ALBUMIN 1.9 gm/dL (3.4-5.0); BILIRUBIN TOTAL 0.5 mg/dL (0.3-1.2); CALCIUM 7.8 mg/dL (8.5-10.1); CREATININE SERUM 1.76 mg/dL (0.70-1.30); GFR 38.04; GLOBULINA 3.1 G/DL (2.4-3.5); MAGNESIUM 1.5 mg/dL (1.8-2.4); POTASSIUM 3.79 mEq/L (3.5-5.1)
[2024-10-11] MEDS ORDERED: MAGNESIUM CHLORIDE 70 MG TABLET.DR PO STA (15:03)
[2024-10-11 16:51] VITALS: BP 124/73; O2SAT 99
[2024-10-11] MEDS ORDERED: NORVASC2.5 M1 PO (16:51)
[2024-10-11] MEDS ORDERED: HYDRALAZINE HCL50 MG PO (16:52)
[2024-10-11] MEDS ORDERED: TOPROL XL25 M1 PO (16:52)
[2024-10-11] MEDS ORDERED: CALCIUM CA500 MG/5 M PO (16:54)
[2024-10-11] MEDS ORDERED: MEGESTROL400 MG/10 PO (16:56)
[2024-10-11] MEDS ORDERED: FOLIC ACID1 MG PO (16:58)
[2024-10-11] MEDS ORDERED: INTESTINEX680 M1 PO (17:00)
== END 2024-10-11 18:08 | disposition home or self-care (01) | DRG 683 ==
LOC: ER 13:33 → MEDJ 20:02 → ICU-2 20:02 → ICU 09-22 13:57 → MEDJ 09-29 19:20
PROVIDERS: General Practice; Internal Medicine; Internal Medicine Infectious Disease; Internal Medicine Nephrology; ADMIT Internal Medicine; ATTEND Internal Medicine
PROC: BW21ZZZ Computerized Tomography (CT Scan) of Abdomen and Pelvis (ICD-10-PCS; principal; 2024-09-21)
PROC: 30233N1 Transfusion of Nonautologous Red Blood Cells into Peripheral Vein, Percutaneous Approach (ICD-10-PCS; 2024-09-23)
PROC: 8E0ZXY6 Isolation (ICD-10-PCS; 2024-09-23)
PROC: B54NZZZ Ultrasonography of Left Upper Extremity Veins (ICD-10-PCS; 2024-09-26)
PROC: B34JZZZ Ultrasonography of Left Upper Extremity Arteries (ICD-10-PCS; 2024-09-26)
PROC: CT631ZZ Nonimaging Nuclear Medicine Assay of Kidneys, Ureters and Bladder using Technetium 99m (Tc-99m) (ICD-10-PCS; 2024-09-29)
PROC: 0T9030Z Drainage of Right Kidney with Drainage Device, Percutaneous Approach (ICD-10-PCS; 2024-10-04)
PROC: 0T9130Z Drainage of Left Kidney with Drainage Device, Percutaneous Approach (ICD-10-PCS; 2024-10-04)
DX: N17.8 Other acute kidney failure (principal); C19 Malignant neoplasm of rectosigmoid junction; D61.818 Other pancytopenia; E87.21 Acute metabolic acidosis; N39.0 Urinary tract infection, site not specified; E86.0 Dehydration; E87.5 Hyperkalemia; D69.6 Thrombocytopenia, unspecified; D72.828 Other elevated white blood cell count; N13.0 Hydronephrosis with ureteropelvic junction obstruction

== ENCOUNTER 2024-10-28 13:45 | Inpatient (IN) | payer OTHER ==
[~2024-10-28] VITALS: Ht 162.6 cm; Wt 45.4 kg
[~2024-10-28 13:45] MED LIST changes: +ABATINEX680 MG PO; +CALCIUM CA500 MG/5 M PO; +FOLIC ACID1 MG PO; +HORIZANT300 MG PO; +HYDRALAZINE HCL50 MG PO; +IRON18 M1 PO; +MEGESTROL400 MG/10 PO; +NORVASC2.5 M1 PO; +TOPROL XL25 M1 PO
[2024-10-28] MEDS ORDERED: 0.9 % SODIUM CHLORIDE 1,000 ML IV SCH ×2 (14:15→20:45)
[2024-10-28 16:00] LABS: BASO % 0.3 % (0.1-1.2); EOS # 0.08 (0.04-0.54); EOS % 0.2 % (0.7-7.0); HEMATOCRIT 34.1 % (40.1-51.0); LYMPH # 1.57 (1.18-3.74); LYMPH % 4.1 % (19.3-53.1); MEAN CORPUSCULAR HEMOGLOBIN 28.9 pg (25.6-32.2); MONO # 1.54 (0.24-0.82); NEUT # 33.86 (1.56-6.13); NEUT % 88.2 % (34.0-71.1); PLATELET COUNT 470 K/uL (163-369); RED BLOOD COUNT 3.81 M/uL (4.63-6.08); RED CELL DISTRIBUTION WIDTH 16.8 % (11.6-14.4)
[2024-10-28 16:19] LABS: ALBUMIN 2.2 gm/dL (3.4-5.0); BILIRUBIN TOTAL 0.32 mg/dL (0.3-1.2); CALCIUM 8.7 mg/dL (8.5-10.1); CREATININE SERUM 3.31 mg/dL (0.70-1.30); GFR 18.35; GLOBULINA 4.4 G/DL (2.4-3.5); POTASSIUM 5.61 mEq/L (3.5-5.1); TOTAL PROTEIN 6.6 gm/dL (6.4-8.2)
[2024-10-28 16:41] LABS: URINE APPEARANCE Turbid; URINE BILIRRUBIN Negative (NEGATIVE); URINE BLOOD Moderate; URINE COLOR Yellow; URINE GLUCOSE Negative (NEGATIVE); URINE KETONE Negative (NEGATIVE); URINE LEUKOCYTE Large; URINE NITRATE Negative; URINE UROBILINOGEN 0.2 E.U./dl
[2024-10-28 16:45] LABS: URINE CAST 4.12 uL (0.0-1.40); URINE RBC 22.3 uL (0.0-20.8)
[2024-10-28 16:50] LABS: COVID-19 AG NEGATIVE (NEGATIVE)
[2024-10-28 16:51] LABS: INFLUENZA A AG NEGATIVE (NEGATIVE); INFLUENZA B AG NEGATIVE (NEGATIVE)
[2024-10-28 16:58] LABS: URINE BACTERIA > 9821.5 uL (0.0-1933); URINE PROTEIN 100 (NEGATIVE); URINE WBC > 5548.3 uL (0.0-23.2)
[2024-10-28] MEDS ORDERED: FAMOTIDINE/PF 20 MG in 0.9 % SODIUM CHLORIDE 8 ML IV PUSH SCH (20:40)
[2024-10-28] MEDS ORDERED: 0.9 % SODIUM CHLORIDE 1,000 ML IV ONE (20:45)
[2024-10-28] MEDS ORDERED: ACETAMINOPHEN 500 MG GEL..CAP PO PRN (20:45)
[2024-10-28] MEDS ORDERED: MEROPENEM 500 MG/VIAL VIAL IV SCH (21:00)
[2024-10-28] MEDS ORDERED: FAMOTIDINE/PF 20 MG/2 ML VIAL ONE (22:15)
[2024-10-28 22:47] LABS: INR 1.15; PROTHROMBIN TIME 12.4 SECONDS (9.0-11.5)
[2024-10-28 22:50] LABS: PHOSPHOROUS 3.9 mg/dL (2.5-4.9)
[2024-10-28 22:55] LABS: C-REACTIVE PROTEIN 15.9 MG/DL (0.00-0.29)
[2024-10-29] VITALS (8 sets, daily range): BP systolic 105–123; BP diastolic 71–72; O2SAT 96–100
[2024-10-29 06:26] LABS: ABG PH 7.413 (7.35-7.45); ABG PO2 115.9 mmHg (80-100); ABG pCO2 21.3 mmHg (35-45); BASE EXCESS -8.8 mmol/l; BICARBONATE 13.3 mmol/l (23-25); SaO2 98.4 %; allen test SATISFACTORY; mode ROOM AIR; o2 21 %; puncture site RADIAL LEFT
[2024-10-29 08:09] LABS: MAGNESIUM 1.9 mg/dL (1.8-2.4); PHOSPHOROUS 4.2 mg/dL (2.5-4.9); TSH 1.34 uIU/mL (0.358-3.74)
[2024-10-29] MEDS ORDERED: MEGESTROL ACETATE 400 MG/10 ML BLIST PACK PO SCH (09:00)
[2024-10-29] MEDS ORDERED: IRON FUM,PS/FOLIC/BCOMP,C NO.9 1 CAP CAPSULE PO SCH (09:00)
[2024-10-30] VITALS: O2SAT 100
[2024-10-30 01:38] VITALS: BP 123/73; O2SAT 97
[2024-10-30 05:38] VITALS: O2SAT 100
[2024-10-30 08:58] VITALS: BP 126/84
[2024-10-30 09:24] VITALS: O2SAT 100
[2024-10-30 18:46] VITALS: BP 126/81; O2SAT 100
[2024-10-31] VITALS (7 sets, daily range): BP systolic 111–137; BP diastolic 71–78; O2SAT 97–100
[2024-10-31 08:35] LABS: BASO % 0.4 % (0.1-1.2); EOS # 0.45 (0.04-0.54); EOS % 2.1 % (0.7-7.0); HEMATOCRIT 28.9 % (40.1-51.0); LYMPH # 1.68 (1.18-3.74); LYMPH % 7.9 % (19.3-53.1); MEAN CORPUSCULAR HEMOGLOBIN 27.9 pg (25.6-32.2); MONO # 1.04 (0.24-0.82); MONO % 4.9 % (4.7-12.5); NEUT # 17.57 (1.56-6.13); NEUT % 82.4 % (34.0-71.1); PLATELET COUNT 408 K/uL (163-369); RED BLOOD COUNT 3.19 M/uL (4.63-6.08); RED CELL DISTRIBUTION WIDTH 17.2 % (11.6-14.4)
[2024-10-31 08:55] LABS: HEMOGLOBIN 8.9 g/dL (13.7-17.5)
[2024-10-31 08:58] LABS: ALBUMIN 1.9 gm/dL (3.4-5.0); BILIRUBIN TOTAL 0.33 mg/dL (0.3-1.2); CALCIUM 8.1 mg/dL (8.5-10.1); CREATININE SERUM 2.47 mg/dL (0.70-1.30); GFR 25.73; GLOBULINA 3.5 G/DL (2.4-3.5); MAGNESIUM 1.6 mg/dL (1.8-2.4); PHOSPHOROUS 2.9 mg/dL (2.5-4.9); POTASSIUM 5.43 mEq/L (3.5-5.1); TOTAL PROTEIN 5.4 gm/dL (6.4-8.2)
[2024-10-31 09:08] LABS: C-REACTIVE PROTEIN 6.62 MG/DL (0.00-0.29)
[2024-10-31] MEDS ORDERED: SODIUM CHLORIDE 0.45 % 1,000 ML IV SCH (10:30)
[2024-10-31] MEDS ORDERED: CEFTRIAXONE SODIUM 2,000 MG VIAL IV SCH (17:00)
[2024-11-01] VITALS (8 sets, daily range): BP systolic 132–141; BP diastolic 77–83; O2SAT 96–100
[2024-11-01 13:38] LABS: BASO % 0.4 % (0.1-1.2); EOS % 1.4 % (0.7-7.0); HEMATOCRIT 30.7 % (40.1-51.0); HEMOGLOBIN 9.6 g/dL (13.7-17.5); LYMPH # 1.75 (1.18-3.74); MEAN CORPUSCULAR HEMOGLOBIN 27.7 pg (25.6-32.2); MONO # 0.89 (0.24-0.82); MONO % 4.1 % (4.7-12.5); NEUT % 84.5 % (34.0-71.1); PLATELET COUNT 375 K/uL (163-369); RED BLOOD COUNT 3.46 M/uL (4.63-6.08); RED CELL DISTRIBUTION WIDTH 17.2 % (11.6-14.4)
[2024-11-01 15:14] LABS: BILIRUBIN TOTAL 0.31 mg/dL (0.3-1.2); CREATININE SERUM 1.74 mg/dL (0.70-1.30); GFR 38.55; GLOBULINA 3.8 G/DL (2.4-3.5); MAGNESIUM 1.5 mg/dL (1.8-2.4); PHOSPHOROUS 2.9 mg/dL (2.5-4.9); POTASSIUM 4.61 mEq/L (3.5-5.1); TOTAL PROTEIN 5.8 gm/dL (6.4-8.2)
[2024-11-01 15:16] LABS: C-REACTIVE PROTEIN 5.01 MG/DL (0.00-0.29)
[2024-11-01] MEDS ORDERED: MAGNESIUM SULFATE IN WATER 50 ML IV NR (16:30)
[2024-11-01] MEDS ORDERED: IOVERSOL 320 MG/ML - 50 ML VIAL IV ONE (20:39)
[2024-11-01] MEDS ORDERED: BUPIVACAINE HCL 30 ML VIAL IJ ONE (22:30)
[2024-11-01] MEDS ORDERED: LIDOCAINE HCL 1%/EPINEPHRINE 20ML VIAL IJ ONE (22:30)
[2024-11-01] MEDS ORDERED: DILTIAZEM HCL 25 MG/5 ML VIAL IV ONE (22:56)
[2024-11-01] MEDS ORDERED: DILTIAZEM HCL 25 MG/5 ML VIAL IV STA (23:18)
[2024-11-02] VITALS (7 sets, daily range): BP systolic 101–123; BP diastolic 67–71; O2SAT 96–100
[2024-11-02] MEDS ORDERED: AMIODARONE HCL 900 MG in DEXTROSE 5 % IN WATER 500 ML IV SCH (06:45)
[2024-11-02] MEDS ORDERED: CIPROFLOXACIN IN 5 % DEXTROSE 400 MG/200 ML PIGGYBAG IV SCH (17:00)
[2024-11-03] VITALS (9 sets, daily range): BP systolic 108–121; BP diastolic 69–81; O2SAT 98–100
[2024-11-03 07:05] LABS: BASO % 0.3 % (0.1-1.2); EOS # 0.29 (0.04-0.54); EOS % 1.3 % (0.7-7.0); HEMATOCRIT 32.5 % (40.1-51.0); HEMOGLOBIN 10.4 g/dL (13.7-17.5); LYMPH # 1.78 (1.18-3.74); LYMPH % 8.1 % (19.3-53.1); MEAN CORPUSCULAR HEMOGLOBIN 28.5 pg (25.6-32.2); MONO # 0.88 (0.24-0.82); NEUT # 18.65 (1.56-6.13); NEUT % 85.1 % (34.0-71.1); PLATELET COUNT 326 K/uL (163-369); RED BLOOD COUNT 3.65 M/uL (4.63-6.08); RED CELL DISTRIBUTION WIDTH 17.1 % (11.6-14.4)
[2024-11-03 07:37] LABS: ALBUMIN 2.1 gm/dL (3.4-5.0); BILIRUBIN TOTAL 0.24 mg/dL (0.3-1.2); CALCIUM 8.2 mg/dL (8.5-10.1); CREATININE SERUM 1.92 mg/dL (0.70-1.30); GFR 34.41; GLOBULINA 3.6 G/DL (2.4-3.5); MAGNESIUM 2.3 mg/dL (1.8-2.4); PHOSPHOROUS 2.9 mg/dL (2.5-4.9); POTASSIUM 5.06 mEq/L (3.5-5.1); TOTAL PROTEIN 5.7 gm/dL (6.4-8.2)
[2024-11-03] MEDS ORDERED: AMIODARONE HCL 200 MG TABLET PO SCH (09:00)
[2024-11-03] MEDS ORDERED: DEXTROSE IV SCH (15:15)
[2024-11-03] MEDS ORDERED: SOD CHLORD IV SCH (15:15)
[2024-11-03] MEDS ORDERED: SODIUM BICARBONATE IV SCH (15:15)
[2024-11-04] VITALS (9 sets, daily range): BP systolic 119–125; BP diastolic 75–80; O2SAT 96–100
[2024-11-04 15:40] LABS: CALCIUM 8.2 mg/dL (8.5-10.1); CREATININE SERUM 1.63 mg/dL (0.70-1.30); GFR 41.56; PHOSPHOROUS 2.2 mg/dL (2.5-4.9); POTASSIUM 4.57 mEq/L (3.5-5.1)
[2024-11-05] VITALS (9 sets, daily range): BP systolic 112–195; BP diastolic 65–74; O2SAT 97–100
[2024-11-06] VITALS (7 sets, daily range): BP systolic 119–131; BP diastolic 72–79; O2SAT 97–100
[2024-11-06 08:39] LABS: BASO % 0.3 % (0.1-1.2); EOS # 0.42 (0.04-0.54); EOS % 3.7 % (0.7-7.0); HEMATOCRIT 27.5 % (40.1-51.0); LYMPH # 1.89 (1.18-3.74); LYMPH % 16.8 % (19.3-53.1); MONO # 0.74 (0.24-0.82); MONO % 6.6 % (4.7-12.5); NEUT # 8.04 (1.56-6.13); NEUT % 71.4 % (34.0-71.1); PLATELET COUNT 308 K/uL (163-369); RED BLOOD COUNT 3.14 M/uL (4.63-6.08); RED CELL DISTRIBUTION WIDTH 16.8 % (11.6-14.4)
[2024-11-06] MEDS ORDERED: AMIODARONE HCL 200 MG TABLET PO SCH (09:00)
[2024-11-06 09:11] LABS: HEMOGLOBIN 8.8 g/dL (13.7-17.5)
[2024-11-07] VITALS (8 sets, daily range): BP systolic 119–138; BP diastolic 70–82; O2SAT 90–100
[2024-11-07 20:57] LABS: BASO % 0.4 % (0.1-1.2); EOS # 0.45 (0.04-0.54); HEMATOCRIT 33.2 % (40.1-51.0); HEMOGLOBIN 10.9 g/dL (13.7-17.5); LYMPH # 1.64 (1.18-3.74); LYMPH % 10.8 % (19.3-53.1); MONO # 0.82 (0.24-0.82); MONO % 5.4 % (4.7-12.5); NEUT # 12.03 (1.56-6.13); NEUT % 79.1 % (34.0-71.1); PLATELET COUNT 315 K/uL (163-369); RED BLOOD COUNT 3.76 M/uL (4.63-6.08); RED CELL DISTRIBUTION WIDTH 15.9 % (11.6-14.4)
[2024-11-07 21:18] LABS: PH,URINE 8.5 (5.0-8.0); URINE APPEARANCE Clear; URINE APPEARANCE Cloudy; URINE BILIRRUBIN Negative (NEGATIVE); URINE BLOOD Large; URINE BLOOD Moderate; URINE COLOR Orange; URINE COLOR Yellow; URINE GLUCOSE Negative (NEGATIVE); URINE KETONE Negative (NEGATIVE); URINE LEUKOCYTE Large; URINE NITRATE Negative; URINE PROTEIN 30 (NEGATIVE); URINE UROBILINOGEN 0.2 E.U./dl
[2024-11-07 21:19] LABS: URINE BACTERIA 1605.8 uL (0.0-1933); URINE CAST 1.91 uL (0.0-1.40); URINE EPITHELIAL CELLS 3.3 uL (0.0-38.8); URINE RBC 196.2 uL (0.0-20.8); URINE WBC 412.2 uL (0.0-23.2)
[2024-11-07 21:20] LABS: URINE BACTERIA 696.3 uL (0.0-1933); URINE CAST 1.91 uL (0.0-1.40); URINE RBC 5824.5 uL (0.0-20.8); URINE WBC 402.4 uL (0.0-23.2)
[2024-11-07 21:50] LABS: URINE PROTEIN 100 (NEGATIVE)
[2024-11-08 01:33] VITALS: BP 113/72; O2SAT 98
[2024-11-08 01:56] VITALS: O2SAT 99
[2024-11-08 04:45] VITALS: O2SAT 99
[2024-11-08 09:33] VITALS: BP 151/82; O2SAT 97
[2024-11-08 09:49] VITALS: O2SAT 98
[2024-11-08 12:56] LABS: ALBUMIN 1.9 gm/dL (3.4-5.0); BILIRUBIN TOTAL 0.52 mg/dL (0.3-1.2); CALCIUM 7.8 mg/dL (8.5-10.1); CREATININE SERUM 1.75 mg/dL (0.70-1.30); GFR 38.29; GLOBULINA 3.3 G/DL (2.4-3.5); PHOSPHOROUS 2.5 mg/dL (2.5-4.9); POTASSIUM 4.1 mEq/L (3.5-5.1); TOTAL PROTEIN 5.2 gm/dL (6.4-8.2)
[2024-11-08 13:10] LABS: MAGNESIUM 1.3 mg/dL (1.8-2.4)
[2024-11-08] MEDS ORDERED: MAGNESIUM SULFATE IN WATER 4 GM/100 ML PIGGYBACK IV NR (13:30)
[2024-11-08 17:07] VITALS: BP 124/70; O2SAT 99
[2024-11-09 02:59] VITALS: BP 108/71; O2SAT 97
[2024-11-09 08:15] VITALS: BP 122/80
[2024-11-09 16:55] VITALS: BP 130/80; O2SAT 99
[2024-11-09] MEDS ORDERED: AMIODARONE HCL200 MG PO (16:55)
[2024-11-09] MEDS ORDERED: CIPRO500 MG PO (16:56)
== END 2024-11-09 20:37 | disposition home or self-care (01) | DRG 872 ==
LOC: ER 13:45 → MEDJ 10-29 01:25 → MEDI 10-29 01:25 → MEDJ 10-29 14:58
PROVIDERS: Emergency Medicine; General Practice; Internal Medicine; Internal Medicine Infectious Disease; Internal Medicine Nephrology; ADMIT Internal Medicine; ATTEND Internal Medicine
PROC: 4A12X4Z Monitoring of Cardiac Electrical Activity, External Approach (ICD-10-PCS; 2024-10-29)
PROC: BW21ZZZ Computerized Tomography (CT Scan) of Abdomen and Pelvis (ICD-10-PCS; principal; 2024-10-30)
PROC: 0T9030Z Drainage of Right Kidney with Drainage Device, Percutaneous Approach (ICD-10-PCS; 2024-11-01)
PROC: 0T25X0Z Change Drainage Device in Kidney, External Approach (ICD-10-PCS; 2024-11-01)
PROC: 30233N1 Transfusion of Nonautologous Red Blood Cells into Peripheral Vein, Percutaneous Approach (ICD-10-PCS; 2024-11-07)
DX: A41.9 Sepsis, unspecified organism (principal); N39.0 Urinary tract infection, site not specified; N17.8 Other acute kidney failure; C19 Malignant neoplasm of rectosigmoid junction; B96.29 Other Escherichia coli [E. coli] as the cause of diseases classified elsewhere; B96.5 Pseudomonas (aeruginosa) (mallei) (pseudomallei) as the cause of diseases classified elsewhere; R63.0 Anorexia; E86.0 Dehydration; R00.0 Tachycardia, unspecified; D72.828 Other elevated white blood cell count; R19.09 Other intra-abdominal and pelvic swelling, mass and lump

== ENCOUNTER 2025-01-01 12:05 | Inpatient (IN) | payer OTHER ==
[~2025-01-01] VITALS: Ht 165.1 cm; Wt 45.4 kg
[~2025-01-01 12:05] MED LIST changes: +AMIODARONE HCL200 MG PO; +CIPRO500 MG PO
--- NOTE | 2025-01-01 12:27 | NUR ---
PACIENTE ALERTA Y ORIENTADO X3 EN COMPANIA DE FAMILIAR. PACIENTE REFIERE TENER COLOCADO DOS NEFROSTOMIAS, REFIERE QUE LA DEL LADO DERECHO NO SOUZA DRENADO ORINA DESDE HACE UNOS JEFFRIES. SE CANDELARIO S/V Y SE UBICA.
[2025-01-01] MEDS ORDERED: 0.9 % SODIUM CHLORIDE 1,000 ML IV STA (12:52)
[2025-01-01 13:26] LABS: BASO % 0.5 % (0.1-1.2); EOS # 0.06 (0.04-0.54); EOS % 0.2 % (0.7-7.0); LYMPH # 2.14 (1.18-3.74); LYMPH % 8.2 % (19.3-53.1); MEAN PLATELET VOLUME 8.60 fl (9.4-12.4); MONO # 1.81 (0.24-0.82); MONO % 7.0 % (4.7-12.5); NEUT # 20.91 (1.56-6.13); NEUT % 80.5 % (34.0-71.1); RED CELL DISTRIBUTION WIDTH 16.0 % (11.6-14.4)
--- NOTE | 2025-01-01 13:35 | NUR ---
SE REALIZA LAB MONTRELL ORDEN MEDICAS BAJO MEDIDAS ASEPTICAS. SE ORIENTA FAMILIAR DE PTE QUIEN REFIERE ENTENDER Y ACEPTAR.
[2025-01-01 13:51] LABS: ALT/SGPT 7.0 U/L (12-78); AST/SGOT 8.0 U/L (15-37); BILIRUBIN TOTAL 0.31 mg/dL (0.3-1.2); BUN CREA RATIO 15.0 (7.0-25.0); CREATININE SERUM 2.02 mg/dL (0.70-1.30); GFR 32.45; GLOBULINA 5.1 G/DL (2.4-3.5); GLUCOSE FASTING 113.0 mg/dL (65-100); OSMOLALITY SERUM 279.0 MOSM/KG (275-295)
[2025-01-01 14:26] LABS: BAND MAN 15.0 %; LYMPHOCYTE MAN 7.0 %; MONOCYTE MAN 5.0 %; NEUTROPHILS MAN 66.0 %
[2025-01-01] MEDS ORDERED: PIPERACILLIN/TAZOBACTAM SODIUM 2.25 GM VIAL IV STA (15:32)
[2025-01-01] MEDS ORDERED: MEROPENEM 500 MG/VIAL VIAL IV SCH (21:07)
[2025-01-01] MEDS ORDERED: PANTOPRAZOLE SODIUM 40 MG in 0.9 % SODIUM CHLORIDE 8 ML IV PUSH SCH (21:09)
[2025-01-01] MEDS ORDERED: ENOXAPARIN SODIUM 40 MG/0.4 ML SYRINGE SUBCUTANEO SCH (21:10)
[2025-01-01] MEDS ORDERED: ACETAMINOPHEN 325 MG TABLET PO PRN (21:15)
[2025-01-01] MEDS ORDERED: ONDANSETRON HCL 4 MG in 0.9 % SODIUM CHLORIDE 50 ML IV PRN (21:15)
[2025-01-01] MEDS ORDERED: DEXTROSE 5 %-0.45 % SOD CHLORD 1,000 ML IV SCH (21:15)
[2025-01-01] MEDS ORDERED: TAMSULOSIN HCL 0.4 MG CAP PO SCH (21:20)
[2025-01-01] MEDS ORDERED: LOSARTAN POTASSIUM 50 MG TABLET PO SCH (21:20)
[2025-01-01 22:09] LABS: ABG PH 7.472 (7.35-7.45); ABG PO2 101.7 mmHg (80-100); BICARBONATE 21.2 mmol/l (23-25)
[2025-01-01 23:02] LABS: o2 21 %
[2025-01-02 02:27] LABS: INR 1.17
[2025-01-02 07:45] LABS: BASO % 0.5 % (0.1-1.2); EOS # 0.10 (0.04-0.54); EOS % 0.5 % (0.7-7.0); LYMPH # 2.53 (1.18-3.74); LYMPH % 11.9 % (19.3-53.1); MEAN PLATELET VOLUME 9.00 fl (9.4-12.4); MONO # 1.56 (0.24-0.82); MONO % 7.4 % (4.7-12.5); NEUT # 16.10 (1.56-6.13); NEUT % 75.8 % (34.0-71.1); RED CELL DISTRIBUTION WIDTH 16.0 % (11.6-14.4)
[2025-01-02 08:39] LABS: EOSINOPHIL MAN 4.0 %; LYMPHOCYTE MAN 12.0 %; METAMYELOCYTE 4.0 %; MONOCYTE MAN 2.0 %; MYELOCYTE 3.0 %; NEUTROPHILS MAN 75.0 %
[2025-01-02] MEDS ORDERED: MEROPENEM 500 MG/VIAL VIAL IV SCH ×2 (09:00→17:00)
[2025-01-02 09:06] VITALS: BP 90/54; O2SAT 98
[2025-01-02 11:15] LABS: URINE APPEARANCE Turbid; URINE BILIRRUBIN Moderate (NEGATIVE); URINE BLOOD Large; URINE COLOR Dark Yellow; URINE GLUCOSE Negative (NEGATIVE); URINE KETONE Negative (NEGATIVE); URINE LEUKOCYTE Large; URINE NITRATE Negative; URINE UROBILINOGEN 1.0 E.U./dl
[2025-01-02 11:56] LABS: URINE EPITHELIAL CELLS 32.9 uL (0.0-38.8); URINE RBC 253.2 uL (0.0-20.8)
[2025-01-02 11:57] LABS: URINE BACTERIA > 9821.5 uL (0.0-1933); URINE CAST > 21.83 uL (0.0-1.40); URINE PROTEIN 100 (NEGATIVE); URINE WBC > 5548.3 uL (0.0-23.2)
[2025-01-02 12:20] LABS: URINE CRYSTALS MODERATE /HPF
[2025-01-02 18:07] VITALS: BP 90/50; O2SAT 100
[2025-01-03 01:46] VITALS: BP 103/66; O2SAT 97
[2025-01-03 08:34] VITALS: BP 113/75; O2SAT 97
[2025-01-03] MEDS ORDERED: ENOXAPARIN SODIUM 30 MG/0.3 ML SYRINGE SUBCUTANEO SCH (09:00)
[2025-01-03 14:54] LABS: BASO % 0.5 % (0.1-1.2); EOS # 0.04 (0.04-0.54); EOS % 0.2 % (0.7-7.0); LYMPH # 1.81 (1.18-3.74); LYMPH % 7.9 % (19.3-53.1); MEAN PLATELET VOLUME 8.50 fl (9.4-12.4); MONO # 1.26 (0.24-0.82); MONO % 5.5 % (4.7-12.5); NEUT # 18.43 (1.56-6.13); NEUT % 80.4 % (34.0-71.1); RED CELL DISTRIBUTION WIDTH 15.4 % (11.6-14.4)
[2025-01-03 16:04] LABS: BUN CREA RATIO 17.0 (7.0-25.0); CREATININE SERUM 1.85 mg/dL (0.70-1.30); GFR 35.91; GLUCOSE FASTING 92.0 mg/dL (65-100); OSMOLALITY SERUM 280.0 MOSM/KG (275-295)
[2025-01-03 16:57] VITALS: BP 101/68; O2SAT 96
[2025-01-03] MEDS ORDERED: GABAPENTIN 300 MG CAPSULE PO SCH (17:00)
[2025-01-04 01:48] VITALS: BP 105/61; O2SAT 98
[2025-01-04 08:51] VITALS: BP 115/76; O2SAT 97
[2025-01-04 17:45] VITALS: BP 126/74
[2025-01-05 01:30] VITALS: BP 119/69; O2SAT 96
[2025-01-05 08:54] VITALS: BP 117/81; O2SAT 99
[2025-01-05] MEDS ORDERED: PANTOPRAZOLE SODIUM 40 MG TABLET.DR PO SCH (09:00)
[2025-01-05] MEDS ORDERED: GENTAMICIN SULFATE 40 MG/ML VIAL IV NR (16:00)
[2025-01-05] MEDS ORDERED: BUPIVACAINE HCL 30 ML VIAL IJ ONE (18:00)
[2025-01-05] MEDS ORDERED: IOVERSOL 320 MG/ML - 100 ML VIAL IV ONE (18:00)
[2025-01-05 18:10] VITALS: BP 113/72; O2SAT 96
[2025-01-05] MEDS ORDERED: CEFTAZIDIME/AVIBACTAM 0.94GM/100ML NSS PB IV SCH (21:00)
[2025-01-06 01:43] VITALS: BP 116/77; O2SAT 95
[2025-01-06 10:22] VITALS: BP 96/61; O2SAT 96
[2025-01-06 10:28] VITALS: BP 96/61; O2SAT 96
[2025-01-06 16:57] VITALS: BP 102/66; O2SAT 100
[2025-01-06] MEDS ORDERED: GENTAMICIN SULFATE/PF 10 MG/ML VIAL IV SCH (17:00)
[2025-01-07 01:13] VITALS: BP 105/55
[2025-01-07 07:51] LABS: ALT/SGPT 11.0 U/L (12-78); AST/SGOT 29.0 U/L (15-37); BILIRUBIN TOTAL 0.39 mg/dL (0.3-1.2); BUN CREA RATIO 19.0 (7.0-25.0); CREATININE SERUM 1.59 mg/dL (0.70-1.30); GFR 42.77; GLOBULINA 3.6 G/DL (2.4-3.5); GLUCOSE FASTING 89.0 mg/dL (65-100); OSMOLALITY SERUM 281.0 MOSM/KG (275-295)
[2025-01-07 09:45] VITALS: BP 100/68; O2SAT 96
[2025-01-07 11:02] LABS: BASO % 0.5 % (0.1-1.2); EOS # 0.19 (0.04-0.54); EOS % 0.8 % (0.7-7.0); LYMPH # 2.55 (1.18-3.74); LYMPH % 10.3 % (19.3-53.1); MEAN PLATELET VOLUME 8.60 fl (9.4-12.4); MONO # 1.50 (0.24-0.82); MONO % 6.0 % (4.7-12.5); NEUT # 19.51 (1.56-6.13); NEUT % 78.6 % (34.0-71.1); RED CELL DISTRIBUTION WIDTH 16.1 % (11.6-14.4)
[2025-01-07 17:42] VITALS: BP 110/72; O2SAT 96
[2025-01-08 01:55] VITALS: BP 128/67
[2025-01-08 10:10] VITALS: BP 125/80
[2025-01-08 17:38] VITALS: BP 123/71
[2025-01-09 01:51] VITALS: BP 102/69
[2025-01-09 09:06] VITALS: BP 130/82; O2SAT 96
[2025-01-09 15:35] LABS: BUN CREA RATIO 17.0 (7.0-25.0); CREATININE SERUM 1.67 mg/dL (0.70-1.30); GFR 40.42; GLUCOSE FASTING 103.0 mg/dL (65-100); OSMOLALITY SERUM 289.0 MOSM/KG (275-295)
[2025-01-09 17:19] VITALS: BP 103/68
[2025-01-10 00:58] VITALS: BP 109/69
[2025-01-10 08:13] VITALS: BP 99/60
[2025-01-10 09:10] LABS: BASO % 0.6 % (0.1-1.2); EOS # 0.26 (0.04-0.54); EOS % 1.5 % (0.7-7.0); LYMPH # 2.54 (1.18-3.74); LYMPH % 14.8 % (19.3-53.1); MEAN PLATELET VOLUME 8.40 fl (9.4-12.4); MONO # 1.10 (0.24-0.82); MONO % 6.4 % (4.7-12.5); NEUT # 12.30 (1.56-6.13); NEUT % 71.6 % (34.0-71.1); RED CELL DISTRIBUTION WIDTH 15.9 % (11.6-14.4)
[2025-01-10 09:47] LABS: ALT/SGPT 12.0 U/L (12-78); AST/SGOT 13.0 U/L (15-37); BILIRUBIN TOTAL 0.32 mg/dL (0.3-1.2); BUN CREA RATIO 15.0 (7.0-25.0); CREATININE SERUM 1.58 mg/dL (0.70-1.30); GFR 43.09; GLOBULINA 3.6 G/DL (2.4-3.5); GLUCOSE FASTING 77.0 mg/dL (65-100); OSMOLALITY SERUM 282.0 MOSM/KG (275-295)
[2025-01-10 09:51] LABS: BAND MAN 2.0 %; EOSINOPHIL MAN 4.0 %; LYMPHOCYTE MAN 17.0 %; MONOCYTE MAN 4.0 %; NEUTROPHILS MAN 73.0 %
[2025-01-10] MEDS ORDERED: ACETAMINOPHEN 325 MG TABLET PO PRN (14:00)
[2025-01-10 15:56] VITALS: BP 100/59
[2025-01-10] MEDS ORDERED: GENTAMICIN SULFATE 40 MG/ML VIAL IV SCH (17:00)
[2025-01-11 01:51] VITALS: BP 119/76
[2025-01-11 08:22] VITALS: BP 109/70; O2SAT 99
[2025-01-11 09:30] LABS: ALT/SGPT 12.0 U/L (12-78); AST/SGOT 14.0 U/L (15-37); BILIRUBIN TOTAL 0.26 mg/dL (0.3-1.2); BUN CREA RATIO 12.0 (7.0-25.0); CREATININE SERUM 1.76 mg/dL (0.70-1.30); GFR 38.04; GLOBULINA 3.6 G/DL (2.4-3.5); GLUCOSE FASTING 98.0 mg/dL (65-100); OSMOLALITY SERUM 282.0 MOSM/KG (275-295)
[2025-01-11] MEDS ORDERED: GENTAMICIN SULFATE 40 MG/ML VIAL IV SCH (17:00)
[2025-01-11 17:34] VITALS: BP 112/65
[2025-01-12 02:59] VITALS: BP 123/76; O2SAT 97
[2025-01-12 08:27] LABS: ALT/SGPT 9.0 U/L (12-78); AST/SGOT 14.0 U/L (15-37); BILIRUBIN TOTAL 0.3 mg/dL (0.3-1.2); BUN CREA RATIO 10.0 (7.0-25.0); CREATININE SERUM 2.02 mg/dL (0.70-1.30); GFR 32.45; GLOBULINA 3.6 G/DL (2.4-3.5); GLUCOSE FASTING 82.0 mg/dL (65-100); OSMOLALITY SERUM 281.0 MOSM/KG (275-295)
[2025-01-12 09:41] VITALS: BP 111/73; O2SAT 97
[2025-01-12 17:48] VITALS: BP 110/67
[2025-01-13 01:31] VITALS: BP 98/64; O2SAT 98
[2025-01-13 08:49] VITALS: BP 115/68; O2SAT 99
[2025-01-13 17:53] VITALS: BP 101/64
[2025-01-14 02:46] VITALS: BP 96/64; O2SAT 98
[2025-01-14 07:37] LABS: BASO % 0.5 % (0.1-1.2); EOS # 0.19 (0.04-0.54); EOS % 1.1 % (0.7-7.0); LYMPH # 2.62 (1.18-3.74); LYMPH % 15.5 % (19.3-53.1); MEAN PLATELET VOLUME 8.60 fl (9.4-12.4); MONO # 1.32 (0.24-0.82); MONO % 7.8 % (4.7-12.5); NEUT # 12.33 (1.56-6.13); NEUT % 73.0 % (34.0-71.1); RED CELL DISTRIBUTION WIDTH 15.9 % (11.6-14.4)
[2025-01-14 07:41] LABS: ALT/SGPT 10.0 U/L (12-78); AST/SGOT 14.0 U/L (15-37); BILIRUBIN TOTAL 0.39 mg/dL (0.3-1.2); BUN CREA RATIO 11.0 (7.0-25.0); CREATININE SERUM 1.86 mg/dL (0.70-1.30); GFR 35.69; GLOBULINA 3.8 G/DL (2.4-3.5); GLUCOSE FASTING 81.0 mg/dL (65-100); OSMOLALITY SERUM 276.0 MOSM/KG (275-295)
[2025-01-14 09:20] VITALS: BP 95/63; O2SAT 97
[2025-01-14] MEDS ORDERED: DEXTROSE 5 % AND 0.9 % NACL 1,000 ML IV SCH (13:30)
[2025-01-14 16:44] VITALS: BP 104/69; O2SAT 99
[2025-01-15 02:02] VITALS: BP 104/69
[2025-01-15 07:50] LABS: URINE APPEARANCE Turbid; URINE BACTERIA 5641.1 uL (0.0-1933); URINE BILIRRUBIN Negative (NEGATIVE); URINE BLOOD Large; URINE COLOR Yellow; URINE EPITHELIAL CELLS 2.3 uL (0.0-38.8); URINE GLUCOSE Negative (NEGATIVE); URINE KETONE Negative (NEGATIVE); URINE LEUKOCYTE Large; URINE NITRATE Negative; URINE RBC 1417.6 uL (0.0-20.8); URINE UROBILINOGEN 0.2 E.U./dl; URINE WBC 2330.7 uL (0.0-23.2)
[2025-01-15 08:15] LABS: URINE CAST 0.73 uL (0.0-1.40); URINE PROTEIN 100 (NEGATIVE); URINE YEAST MANY /hpf
[2025-01-15 13:26] VITALS: BP 110/70; O2SAT 98
[2025-01-15 18:25] VITALS: BP 106/66; O2SAT 98
== END 2025-01-15 23:16 | disposition home or self-care (01) | DRG 690 ==
LOC: ER 12:05 → MEDJ 21:35 → MEDI 21:35 → MEDJ 01-03 18:10
PROVIDERS: General Practice; Internal Medicine; Internal Medicine Infectious Disease; Internal Medicine Nephrology; Radiology Vascular & Interventional Radiology; ADMIT Internal Medicine; ATTEND Internal Medicine
PROC: BW21ZZZ Computerized Tomography (CT Scan) of Abdomen and Pelvis (ICD-10-PCS; 2025-01-01)
PROC: 30233N1 Transfusion of Nonautologous Red Blood Cells into Peripheral Vein, Percutaneous Approach (ICD-10-PCS; 2025-01-02)
PROC: 8E0ZXY6 Isolation (ICD-10-PCS; 2025-01-03)
PROC: 0T25X0Z Change Drainage Device in Kidney, External Approach (ICD-10-PCS; principal; 2025-01-05 16:00)
DX: N39.0 Urinary tract infection, site not specified (principal); N17.9 Acute kidney failure, unspecified; N99.522 Malfunction of incontinent external stoma of urinary tract; D64.9 Anemia, unspecified; B96.5 Pseudomonas (aeruginosa) (mallei) (pseudomallei) as the cause of diseases classified elsewhere; B96.89 Other specified bacterial agents as the cause of diseases classified elsewhere; N13.9 Obstructive and reflux uropathy, unspecified; N40.0 Benign prostatic hyperplasia without lower urinary tract symptoms; I12.9 Hypertensive chronic kidney disease with stage 1 through stage 4 chronic kidney disease, or unspecified chronic kidney disease; N18.9 Chronic kidney disease, unspecified